=== PATIENT | male | born 1990 | race African-American/Black ===

== ENCOUNTER 2020-04-24 23:20 | Emergency (ER) | payer BC, OTHER ==
[2020-04-24 23:43] VITALS: TEMP 97.9
[2020-04-24] MEDS ORDERED: KETOROLAC 60 MG/2 ML VIAL IM STA (23:46)
[2020-04-24] MEDS ORDERED: ACET/COD 300 MG/30 MG STARTER PACK 6 TAB BTL PO STA (23:46)
[2020-04-24] MEDS ORDERED: Acetaminophen-Codeine 300-30mg TAB PO STA (23:46)
--- NOTE | 2020-04-25 00:38 | ED ---
Back Pain HPI - General Chief Complaint: Back Pain/Injury Stated Complaint: Back Pain Time Seen by Provider: 04/24/20 23:45 Source: patient, RN notes reviewed, old records reviewed Limitations: no limitations - History of Present Illness Initial Comments: This is a 30-year-old male DF for evaluation of back pain acute on chronic back pain in nature no new traumas. Patient is loss of bowel or bladder denying any fevers denying drug abuse. Patient does have history of back pain occasionally, with no modifying factors. Patient's able to ambulate denying neurological complaint MD Complaint: back pain -: days(s) Similar Symptoms Previously: Yes Place: home Radiation: none Severity: moderate Severity scale (1-10): 7 Consistency: constant Improves With: none Worsens With: none Associated Symptoms: denies other symptoms - Related Data Previous Rx's Medication Instructions Recorded Tobramycin 0.3% Ophth Oint [Tobrex 1 applic BOTH EYES TID #1 tube 10/26/16 0.3% Ophth Oint] Cephalexin [Keflex] 500 mg PO Q6HR 3 Days #12 cap 04/25/20 Allergies Allergy/AdvReac Type Severity Reaction Status Date / Time No Known Allergies Allergy Verified 04/24/20 23:43 Review of Systems ROS Statement: Those systems with pertinent positive or pertinent negative responses have been documented in the HPI. ROS Other: All systems not noted in ROS Statement are negative. Past Medical History Past Medical History: No Reported History History of Any Multi-Drug Resistant Organisms: None Reported Past Surgical History: No Surgical Hx Reported Past Psychological History: No Psychological Hx Reported Smoking Status: Current every day smoker Past Alcohol Use History: None Reported Past Drug Use History: Marijuana General Exam - General Exam Comments Initial Comments: No neurological deficits Limitations: no limitations General appearance: alert, in no apparent distress Head exam: Present: atraumatic, normocephalic, normal inspection Eye exam: Present: normal appearance, PERRL, EOMI. Absent: scleral icterus, conjunctival injection, periorbital swelling ENT exam: Present: normal exam, mucous membranes moist Neck exam: Present: normal inspection. Absent: tenderness, meningismus, lymphadenopathy Respiratory exam: Present: normal lung sounds bilaterally. Absent: respiratory distress, wheezes, rales, rhonchi, stridor Cardiovascular Exam: Present: regular rate, normal rhythm, normal heart sounds. Absent: systolic murmur, diastolic murmur, rubs, gallop, clicks GI/Abdominal exam: Present: soft, normal bowel sounds. Absent: distended, tenderness, guarding, rebound, rigid Extremities exam: Present: normal inspection, full ROM, normal capillary refill. Absent: tenderness, pedal edema, joint swelling, calf tenderness Back exam: Present: normal inspection Neurological exam: Present: alert, oriented X3, CN II-XII intact Psychiatric exam: Present: normal affect, normal mood Skin exam: Present: warm, dry, intact, normal color. Absent: rash Course Vital Signs 04/24/20 04/25/20 23:41 01:50 Temperature 97.9 F 97.9 F Pulse Rate 72 70 Respiratory 18 19 Rate Blood Pressure 120/77 130/77 O2 Sat by Pulse 100 97 Oximetry - Reevaluation(s) Reevaluation #1: Medical records reviewed Pain is controlled Medical Decision Making - Medical Decision Making 30 male DF for acute on chronic back pain back pain is improved here in the ER and patient will be discharged home - Lab Data Lab Results 04/25/20 04/25/20 Range/Units 00:45 00:45 Urine Color Yellow Urine Appearance Clear (Clear) Urine pH 6.0 (5.0-8.0) Ur Specific [place] 1.027 (1.001-1.035) Urine Protein Trace H (Negative) Urine Glucose (UA) Negative (Negative) Urine Ketones Negative (Negative) Urine Blood Negative (Negative) Urine Nitrite Negative (Negative) Urine Bilirubin Negative (Negative) Urine Urobilinogen 2.0 (<2.0) mg/dL Ur Leukocyte Esterase Small H (Negative) Urine RBC 2 (0-5) /hpf Urine WBC 10 H (0-5) /hpf Ur Squamous Epith Cells <1 (0-4) /hpf Urine Bacteria Rare H (None) /hpf Urine Mucus Many H (None) /hpf Chlamydia Source Urine Chlamydia DNA (PCR) Negative (Neg,Equiv) N. gonorrhoeae Source Urine N.gonorrhoeae DNA Probe Negative (Neg,Equiv) - Radiology Data Radiology results: report reviewed (X-ray lumbar sacral spine is negative for traumatic injury), image reviewed Disposition Clinical Impression: Sciatica, Strain of lumbar region, Mid back pain, Lumbar radiculopathy Disposition: HOME SELF-CARE Condition: Good Instructions (If sedation given, give patient instructions): Acute Low Back Pain (ED) Prescriptions: Cephalexin [Keflex] 500 mg PO Q6HR 3 Days #12 cap Is patient prescribed a controlled substance at d/c from ED?: No Referrals: Jeffrey Jaeger MD [Primary Care Provider] - 1-2 days
--- NOTE | 2020-04-25 01:04 | XR ---
EXAMINATION TYPE: XR lumbar spine 2 or 3V DATE OF EXAM: 04/25/2020 COMPARISON: NONE HISTORY: Back pain TECHNIQUE: 3 views FINDINGS: Lumbar vertebra have normal spacing and alignment. Posterior elements are intact. There is no compression fracture. Sacroiliac joints appear normal. IMPRESSION: Normal lumbar spine exam.
[2020-04-25 01:25] LABS: Appearance,Urine Clear (Clear); Bacteria,Urine Rare /hpf; Bilirubin,Urine Negative (Negative); Blood,Urine Negative (Negative); Color,Urine Yellow; Glucose,Urine (UA) Negative (Negative); Ketones,Urine Negative (Negative); Leukocyte Esterase,Urine Small (Negative); Mucus,Urine Many /hpf; Nitrite,Urine Negative (Negative); Protein,Urine Trace (Negative); RBC,Urine 2 /hpf (0-5); Specific Gravity,Urine 1.027 (1.001-1.035); Squamous Epithelial Cell,Urine <1 /hpf (0-4); WBC,Urine 10 /hpf (0-5)
[2020-04-25 01:53] VITALS: BP 130/77; PULSE 70; RESP 19
[2020-04-26 14:32] LABS: C. trachomatis,PCR Negative (Neg,Equiv); Chlamydia trachomatis Source Urine; N. gonorrhoeae,PCR Negative (Neg,Equiv); Neisseria Source Urine
== END 2020-04-25 01:49 | disposition home or self-care (01) ==
LOC: EC 23:20
DX: M54.16 Radiculopathy, lumbar region (principal); S39.012A Strain of muscle, fascia and tendon of lower back, initial encounter; M54.30 Sciatica, unspecified side; G89.29 Other chronic pain; F17.200 Nicotine dependence, unspecified, uncomplicated; X58.XXXA Exposure to other specified factors, initial encounter
CPT/HCPCS: 81001; 87491; 87591; 87086; 72100; 99284; 96372; J1885

== ENCOUNTER 2021-09-01 14:06 | Emergency (ER) | payer BC ==
[2021-09-01 15:19] VITALS: RESP 18; TEMP 98.1
[2021-09-01] MEDS ORDERED: PROPARACAINE 0.5% OPHTH DROPS 15 ML BTL RIGHT EYE STA (16:17)
[2021-09-01] MEDS ORDERED: FLUORESCEIN STRIPS 1 MG STRIP RIGHT EYE ONE (16:18)
--- NOTE | 2021-09-01 17:05 | ED ---
Eye Problem HPI - General Chief complaint: Eye Problems Stated complaint: blurred vision Time Seen by Provider: 09/01/21 16:17 Source: patient, RN notes reviewed Mode of arrival: ambulatory Limitations: no limitations - History of Present Illness Initial comments: Patient is a 31-year-old male presenting to the emergency Department with complaints of irritation to his right eye for the past week. He states about 2 weeks ago he thought he had a few things of saw dust in his eye, I did get better but then about a week ago he stated having some eye pain and redness. He denies any injuries or any of further foreign bodies to his eye. He denies wearing contacts. He does have a little bit of blurry vision to the right eye. He has not followed up with his eye doctor yet. He has no further complaints. - Related Data Previous Rx's Medication Instructions Recorded Tobramycin 0.3% Ophth Oint [Tobrex 1 applic BOTH EYES TID #1 tube 10/26/16 0.3% Ophth Oint] Cephalexin [Keflex] 500 mg PO Q6HR 3 Days #12 cap 04/25/20 Erythromycin Ophth Oint [Romycin 1 applic RIGHT EYE QID 7 Days #1 gm 09/01/21 Ophth Oint] Allergies Allergy/AdvReac Type Severity Reaction Status Date / Time No Known Allergies Allergy Verified 04/24/20 23:43 Review of Systems ROS Statement: Those systems with pertinent positive or pertinent negative responses have been documented in the HPI. ROS Other: All systems not noted in ROS Statement are negative. Past Medical History Past Medical History: No Reported History History of Any Multi-Drug Resistant Organisms: None Reported Past Surgical History: No Surgical Hx Reported Past Psychological History: No Psychological Hx Reported Smoking Status: Never smoker Past Alcohol Use History: None Reported Past Drug Use History: Marijuana General Exam - General Exam Comments Initial Comments: GENERAL: Patient is well-developed and well-nourished. Patient is nontoxic and in no acute distress. HEAD: Atraumatic, normocephalic. EYES: Pupils equal round and reactive to light, extraocular movements intact, sclera anicteric. Eyelids were unremarkable. Right conjunctiva is injected, fluorescein stain does reveal 2 small abrasions to the right eye, one in the 1 o'clock position and one in the 4 o'clock position. ENT: Moist mucous membranes. LUNGS: Unlabored respirations. Breath sounds clear to auscultation bilaterally and equal. No wheezes rales or rhonchi. HEART: Regular rate and rhythm without murmurs, rubs or gallops. NEUROLOGICAL: Patient is alert and oriented x 3. SKIN: Warm, Dry, normal turgor, no rashes or lesions noted. Limitations: no limitations Course Vital Signs 09/01/21 09/01/21 15:16 17:10 Temperature 98.1 F Pulse Rate 58 L 66 Respiratory 18 18 Rate Blood Pressure 125/69 118/60 O2 Sat by Pulse 98 99 Oximetry Medical Decision Making - Medical Decision Making Patient is a 31-year-old male here with right eye irritation for the past week. He has some pain in the right eye. He did have some foreign bodies in the eye about 2 weeks ago, denies contact use. Exam reveals 2 small corneal abrasions. I will start him on a erythromycin ointment. I urged him to follow up with his eye doctor. He is agreeable as planned. He is stable for discharge. Disposition Clinical Impression: Injury of conjunctiva and corneal abrasion of right eye w/o FB Disposition: HOME SELF-CARE Condition: Stable Instructions (If sedation given, give patient instructions): Corneal Abrasion (ED) Additional Instructions: Please return to the Emergency Department if symptoms worsen or any other concerns. Use antibiotic ointment as discussed. Please follow-up with your eye doctor. Prescriptions: Erythromycin Ophth Oint [Romycin Ophth Oint] 1 applic RIGHT EYE QID 7 Days #1 gm Is patient prescribed a controlled substance at d/c from ED?: No Referrals: Jeffrey Jaeger MD [Primary Care Provider] - 1-2 days Time of Disposition: 17:05
[2021-09-01 17:11] VITALS: BP 118/60; PULSE 66
== END 2021-09-01 17:38 | disposition home or self-care (01) ==
LOC: EC 14:06
DX: S05.01XA Injury of conjunctiva and corneal abrasion without foreign body, right eye, initial encounter (principal); F12.90 Cannabis use, unspecified, uncomplicated; X58.XXXA Exposure to other specified factors, initial encounter
CPT/HCPCS: 99283

== ENCOUNTER → 2021-10-02 | Outpatient (CLI) | payer BC ==
[2021-10-02 10:03] LABS: Basophils # (A) 0.1 k/uL (0-0.2); Basophils % (A) 1 %; Eosinophils # (A) 0.5 k/uL (0-0.7); Eosinophils % (A) 7 %; HCT 42.9 % (39.0-53.0); HGB 14.3 gm/dL (13.0-17.5); Lymphocytes # (A) 2.2 k/uL (1.0-4.8); Lymphocytes % (A) 31 %; MCH 29.2 pg (25.0-35.0); MCHC 33.3 g/dL (31.0-37.0); MCV 87.8 fL (80.0-100.0); Mean Platelet Volume 7.6; Monocytes # (A) 0.4 k/uL (0-1.0); Monocytes % (A) 6 %; Neutrophils # (A) 3.7 k/uL (1.3-7.7); Neutrophils % (A) 53 %; Platelet Count 232 k/uL (150-450); RBC 4.88 m/uL (4.30-5.90); RDW 12.2 % (11.5-15.5); WBC 6.9 k/uL (3.8-10.6)
--- NOTE | 2021-10-02 10:06 | XR ---
EXAMINATION TYPE: XR chest 2V DATE OF EXAM: 10/02/2021 COMPARISON: NONE HISTORY: H44.131, H43.89 TECHNIQUE: Frontal and lateral views of the chest are obtained. FINDINGS: There is no focal air space opacity, pleural effusion, or pneumothorax seen. The cardiac silhouette size is within normal limits. Underlying scoliosis is present. IMPRESSION: No acute cardiopulmonary process.
[2021-10-03 10:30] LABS: HLA B27 POSITIVE
== END | disposition home or self-care (01) ==
LOC: LABWHC1 08:47
PROVIDERS: ATTEND Optometrist
DX: H44.131 Sympathetic uveitis, right eye (principal); H43.89 Other disorders of vitreous body
CPT/HCPCS: 36415; 71046; 85025; 85549; 86480; 86780; 86812